=== PATIENT | male | born 2000 | race Caucasian/White ===

== ENCOUNTER 2018-11-07 18:16 | Emergency (ER) | payer OTHER, SELFPAY ==
[2018-11-07 19:14] LABS: Hemoglobin 12.7 g/dL (14.0-18.0); Mean Corpuscular HGB CONC 33.8 g/dL (32.0-36.0); Mean Corpuscular Hemoglobin 29.6 pg (25.0-35.0); Mean Corpuscular Volume 87.7 fL (78.0-98.0); Mean Platelet Volume 8.6 fL (7.4-10.4); Platelet Count 169 thou/uL (130-400); RBC Distribution Width 11.5 % (11.5-14.5); Red Blood Cell (RBC) Count 4.28 mill/uL (4.00-5.20); White Blood Cell (WBC) Count 3.7 thou/uL (4.8-10.8)
[2018-11-07 19:30] LABS: Band 2 % (5-11); Lymphocytes 18 % (28-48); MDiff Complete? YES; Monocytes 13 % (0-4); Neutrophil 66 % (31-61); Platelet Morphology Comment Appears Adequate; Reactive Lymphocytes 1 % (0-10)
[2018-11-07 19:35] LABS: ALT (SGPT) 8 U/L (8-55); AST (SGOT) 12 U/L (10-45); Albumin 4.7 g/dL (3.5-5.0); Alkaline Phosphatase 67 U/L (Less than 750); Anion Gap 13 mmol/L (10-20); BUN (Urea Nitrogen) 12 mg/dL (8.4-21.0); Bilirubin, Total 0.9 mg/dL (0.2-1.2); Calc. Creatinine Clearance 0 mL/min (70-130); Calcium 9.6 mg/dL (7.8-10.44); Carbon Dioxide 26 mmol/L (22-29); Chloride 101 mmol/L (98-107); Estimated GFR-MDRD Greater than 90; Glucose 113 mg/dL (70-105); Potassium 3.5 mmol/L (3.5-5.1); Protein, Total 7.7 g/dL (6.0-8.3); Sodium 136 mmol/L (136-145)
== END 2018-11-07 22:35 | disposition home or self-care (01) ==
LOC: ERS 18:16
DX: K58.9 Irritable bowel syndrome, unspecified (principal); R06.4 Hyperventilation; R20.2 Paresthesia of skin; F17.210 Nicotine dependence, cigarettes, uncomplicated
CPT/HCPCS: 36415; 80053; 85025; 93005